=== PATIENT | male | born 1955 | race Caucasian/White ===

== ENCOUNTER 2020-05-27 13:54 | Emergency (ER) | payer OTHER ==
[~2020-05-27] VITALS: Ht 172.7 cm; Wt 104.3 kg
[2020-05-27 17:22] VITALS: BP 126/74
--- NOTE | 2020-05-28 08:12 | EKG ---
[facility] [place] [address] ELECTROCARDIOGRAM REPORT Name: EMELY PATEL Room #: [facility]P [facility].#: [id number] Admission: 05/27/20 Attend Phys: Discharge: 05/27/20 Date of : 55 Report #: [id number] THIS REPORT FOR: cc: MALOU - Jeaneth family physician/PCP MALOU - Jeaneth family physician/PCP Neftali Avila MD ~ THIS REPORT FOR: //name// [facility] ED Test Date: 2020-05-27 Test Time: 14:20:45 Pat Name: EMELY JOHNSON Department: Room: Gender: C[employer] Grinder: Leonard : 1955 Requested By: Roma Carter Order Number: [id number] MD: Neftali Avila Measurements Intervals [place] Rate: 73 P: 40 ID: [id number] QRS: 11 QRSD: 102 T: 25 QT: 410 QTc: 452 Interpretive Statements Sinus rhythm No previous ECG available for comparison Electronically Signed On 05-28-2020 8:12:36 CDT by Neftali Avila [email or web address] <ELECTRONICALLY SIGNED> By: Neftali Avila MD 05/28/2012 19 19 Neftali Avila MD /YAA
== END 2020-05-27 17:22 | disposition home or self-care (01) ==
LOC: ER 13:54
DX: F10.920 Alcohol use, unspecified with intoxication, uncomplicated (principal); M79.642 Pain in left hand; R26.81 Unsteadiness on feet